=== PATIENT | female | born 1975 | race African-American/Black ===

== ENCOUNTER 2017-04-12 08:25 | Outpatient (CLI) | payer OTHER ==
--- NOTE | 2017-04-12 10:01 | Ultrasound Report ---
ULTRASOUND GUIDED NEEDLE CORE BIOPSY RIGHT BREAST WITH CLIP PLACEMENT: 04/12/17 CLINICAL: Right breast mass at 1 o'clock. COMPARISON :Recent outside images. FINDINGS: The procedure was explained to the patient and informed consent was obtained. Ultrasound demonstrated the previously described superficial solid hypoechoic shadowing mass at 1 o'clock 4 cm from the nipple. It measures 5 x 6 x 5 mm.. I marked the breast with a felt tip marker and a time out was called. The skin was prepped with Betadine and anesthetized with 1% lidocaine. Needle core biopsy was performed through a tiny dermatotomy using ultrasound guidance, 2% lidocaine with epinephrine for deep anesthesia and a 18-gauge Achieve biopsy device. Three cores were obtained and placed in formalin. A clip was deployed within the mass. The patient tolerated the procedure well and there were no apparent complications. The breast implant was unchanged by the procedure. Hemostasis was achieved with minimal pressure and a sterile dressing was applied. A two view mammogram demonstrated satisfactory placement of the clip. She left the department in good condition and was given instructions for wound care and followup. IMPRESSION: Uncomplicated ultrasound guided needle core biopsy with clip placement right breast.
--- NOTE | 2017-04-12 10:03 | Mammography Report ---
RIGHT DIGITAL DIAGNOSTIC MAMMOGRAM: 04/12/17 08:25:00 CLINICAL: For clip placement immediately status post ultrasound biopsy. COMPARISON:Outside mammogram. FINDINGS: A biopsy clip is now identified in the upper inner quadrant.Although clip position is concordant, the lesion is not identified on the mammogram. IMPRESSION: Concordant clip placement status post ultrasound biopsy. BI-RADS CATEGORY: 4--Suspicious Pathology pending.
== END 2017-04-12 08:26 | disposition home or self-care (01) ==
LOC: SPVWC 08:25
PROVIDERS: ATTEND Internal Medicine
DX: N63.10 Unspecified lump in the right breast, unspecified quadrant (principal)
CPT/HCPCS: 19083; 88305; A4648; G0206